=== PATIENT | female | born 1960 | race Asian ===

== ENCOUNTER 2021-10-02 02:26 | Emergency (ER) | payer OTHER ==
[~2021-10-02] VITALS: Ht 170.2 cm; Wt 109.0 kg
--- NOTE | 2021-10-02 04:00 | NUR ---
PATIENT RESTING IN ROOM, AWAITING DISPO. ICE PACK TO AFFECTED AREAS.
[2021-10-02 06:24] VITALS: BP 152/79
--- NOTE | 2021-10-02 06:26 | NUR ---
patient spoke with [facility] before arrival.
[2021-10-02] MEDS ORDERED: acetaminophen 325mg tablet PO ONE (06:30)
== END 2021-10-02 08:11 | disposition home or self-care (01) ==
LOC: ER 02:27
DX: S00.03XA Contusion of scalp, initial encounter (principal); S50.12XA Contusion of left forearm, initial encounter; S80.211A Abrasion, right knee, initial encounter; S09.90XA Unspecified injury of head, initial encounter; Y04.8XXA Assault by other bodily force, initial encounter; Y93.89 Activity, other specified; Y92.89 Other specified places as the place of occurrence of the external cause; Y99.8 Other external cause status
CPT/HCPCS: 70450; 73090; 99284